=== PATIENT | female | born 1975 | race Hispanic/Latino ===

== ENCOUNTER 2018-01-13 08:04 | Outpatient (CLI) | payer OTHER ==
--- NOTE | 2018-01-13 10:45 | Ultrasound Report ---
RIGHT UPPER QUADRANT ABDOMINAL ULTRASOUND: 01/13/18 08:04:00 CLINICAL: Nausea and epigastric pain. FINDINGS: High-resolution ultrasound demonstrated a normal liver. Normal hepatic vasculature and inferior vena cava. Normally distended gallbladder with no stones. The gall bladder wall measures 2.3 mm in thickness. Normal intrahepatic and extra hepatic bile ducts. The common bile duct measures 2.1 mm diameter. The pancreatic head and proximal body are normal. The pancreatic tail is not well-imaged the 2 bowel gas. Normal upper abdominal aorta measuring approximately 2 cm maximum. The right kidney is normal and measures 9.0 x 4.1 x 4.4cm. No ascites or mass. IMPRESSION: Normal study. No cholelithiasis.
--- NOTE | 2018-01-13 13:56 | Mammography Report ---
BONE DEXA:01/13/18 08:04:00 CLINICAL: Postmenopausal. No comparison. TECHNIQUE: Two site bone DEXA performed on an Hologic scanner. FINDINGS: The average BMD of the lumbar spine L1-L4 is 0.977g/cm squared with a T-score of -0.6 and a Z-score of 0.2. The average BMD of the left hip is 0.845g/cm squared with a T-score of -0.8 and a Z-score of -0.5. IMPRESSION: WHO classification: Normal with average fracture risk based on both lumbar spine and left hip measurements. RECOMMENDATION: Clinical correlation and routine screening. DEFINITIONS: BMD = Bone Mineral Density T-score = BMD related to mean peak bone mass of young adult (mean expressed in Standard Deviation) Z-score = Age matched BMD expressed in SD World Health Organization (WHO) Diagnostic Criteria Normal T-score > -1 SD Osteopenia T-score between -1 and -2.4 SD Osteoporosis T-score -2.5 SD or below NOTE: BMD is not the only risk factor for fracture. One should also consider factors such as the patient's age, risk of falling, previous osteoporotic fracture, family history of osteoporotic fractures, current smoker, and low body weight. Z-scores are not calculated if >80 years of age.
--- NOTE | 2018-01-13 14:01 | Mammography Report ---
BILATERAL DIGITAL SCREENING MAMMOGRAM with CAD: 01/13/18 CLINICAL: Routine screening. COMPARISON:None available. However, a prior mammogram was apparently done at [place]. FINDINGS: There are bilateral scattered fibroglandular densities. Left asymmetries on the CC view require comparison with the prior mammogram or additional imaging.No architectural distortion or suspicious calcifications.The right breast is negative. IMPRESSION: Left asymmetries requiring further evaluation. BI-RADS CATEGORY: 0 -- Additional Evaluation Required RECOMMENDATION: Comparison with a previous mammogram. We will attempt to obtain a prior mammogram for comparison. If we do not obtain a prior mammogram within 30 days, a revised report will be issued recommending a recall for additional imaging. Please be advised that the patient should not schedule an appointment for return until adequate time (at least 2 weeks) has passed for us to obtain the prior mammogram. ACR BI-RADS MAMMOGRAPHIC CODES: 0 = Needs additional imaging evaluation; 1 = Negative; 2 = Benign; 3 = Probably benign; 4 = Suspicious; 5 = Malignant; 6 = Known biopsy-proven malignancy COMMENT: 1. Dense breast tissue, i.e., adenosis, fibrocystic changes, etc., may obscure an underlying neoplasm. 2. Approximately 10% of cancers are not detected with mammography. 3. A negative mammography report should not delay biopsy if a clinically suspicious mass is present. COMMENT: Patient follow-up letters are generated via our [employer] application.
== END 2018-01-13 08:05 | disposition home or self-care (01) ==
LOC: SPVWC 08:04
PROVIDERS: ATTEND Internal Medicine
DX: Z12.31 Encounter for screening mammogram for malignant neoplasm of breast (principal); Z13.820 Encounter for screening for osteoporosis; Z78.0 Asymptomatic menopausal state; R10.13 Epigastric pain; R11.0 Nausea
CPT/HCPCS: 76705; 77067; 77080

== ENCOUNTER 2018-01-28 15:27 | Outpatient (CLI) | payer OTHER ==
--- NOTE | 2018-01-28 15:59 | XRay Report ---
XRAY CHEST TWO VIEWS: 01/28/18 15:27:00 CLINICAL: Cough and dyspnea. COMPARISON: None FINDINGS: Normal heart and pulmonary vasculature. The lungs are normally expanded and clear.Mild osteopenia and exaggerated thoracic kyphosis. Mild anterior wedging of midthoracic vertebral bodies 7, 8 and 9. No fracture lines identified. IMPRESSION: No acute cardiopulmonary process.Age-indeterminate mild anterior wedge compression fractures of T7, T8 and T9.
== END 2018-01-28 15:28 | disposition home or self-care (01) ==
LOC: SPVIMAG 15:27
PROVIDERS: ATTEND Internal Medicine
DX: J45.909 Unspecified asthma, uncomplicated (principal); R06.00 Dyspnea, unspecified
CPT/HCPCS: 71046